=== PATIENT | female | born 1945 | race Caucasian/White ===

== ENCOUNTER 2017-11-12 05:34 | Day surgery (SDC) | payer OTHER ==
[2017-11-11 09:49] VITALS: BMI 28.1
[2017-11-12] MEDS ORDERED: BUPIVACAINE HCL/PF 0.5% (5MG/ML) 10 ML VIAL ONE (13:23)
[2017-11-12] MEDS ORDERED: BENZOIN/ALOE VERA/STORAX/TOLU 58 ML BOTTLE ONE (13:23)
[2017-11-12] MEDS ORDERED: ROCURONIUM BROMIDE 50 MG/5 ML VIAL ONE (13:28)
[2017-11-12] MEDS ORDERED: MIDAZOLAM HCL 2 MG/2 ML SINGLE DOSE VIAL ONE (13:28)
[2017-11-12] MEDS ORDERED: PROPOFOL 20 ML ONE (13:28)
--- NOTE | 2017-11-12 14:11 | HP ---
History & Physical Update - History History: No Change (from H&P 10/21/17) - Physical Physical: No Change (reducible umbilical/ventral hernia) - Assessment Assessment: No Change - Plan Plan: No Change (laparoscopic possible open ventral hernia repair with mesh)
[2017-11-12] MEDS ORDERED: ceFAZolin SODIUM 1 GM VIAL IVPB ONE (14:29)
[2017-11-12] MEDS ORDERED: DESFLURANE GAS 240 ML BOTTLE IH ONE (14:50)
[2017-11-12] MEDS ORDERED: KETOROLAC TROMETHAMINE 30 MG/1 ML VIAL ONE (15:32)
[2017-11-12] MEDS ORDERED: GLYCOPYRROLATE 0.2 MG/1 ML VIAL ONE (15:32)
[2017-11-12] MEDS ORDERED: NEOSTIGMINE METHYLSULFATE 0.5 MG/ML - 10 ML MDV ONE (15:32)
[2017-11-12] MEDS ORDERED: BUPIVACAINE HCL/PF 0.5% (5MG/ML) 10 ML VIAL IJ ONE (15:36)
[2017-11-12] MEDS ORDERED: METOPROLOL TARTRATE 5 MG/5 ML VIAL ONE (15:47)
[2017-11-12] MEDS ORDERED: ONDANSETRON 4 MG/2 ML VIAL IVPUSH PRN (15:55)
[2017-11-12] MEDS ORDERED: PROMETHAZINE HCL 25 MG/1 ML VIAL IVPUSH PRN (15:55)
[2017-11-12] MEDS ORDERED: LACTATED RINGERS SOLUTION 1,000 ML IV SCH (16:00)
--- NOTE | 2017-11-12 16:17 | OP ---
Operative Note - Note: Operative Date: 11/12/17 Pre-Operative Diagnosis: reducible ventral hernia Operation: laparoscopic ventral hernia repair with mesh Findings: 2cm defect, no content; closed percutaneously, 4x6" Bard elliptical Echo PS mesh used Implants: Bard 4x6" elliptical mesh with Echo PS Post-Operative Diagnosis: Same as Pre-op Surgeon: Donny Alonso Email Operations Manager: Bethel Mota Anesthesiologist/CASTING AGENT: Gamaliel Caldwell Anesthesia: General, Local (10ml 0.5% marcaine) Estimated Blood Loss (mls): 5 Fluid Volume Replaced (mls): 1,200 (crystalloid) Operative Report Dictated: Yes
[2017-11-12] MEDS ORDERED: oxyCODONE HCL 5 MG TABLET PO ONE (16:30)
[2017-11-12 16:53] VITALS: TEMP 98.2
[2017-11-12 18:49] VITALS: BP 144/65; PULSE 82
== END 2017-11-12 18:45 | disposition home or self-care (01) ==
LOC: JASU-SURG 05:34
PROVIDERS: ATTEND Surgery
PROC: 0WUF4JZ Supplement Abdominal Wall with Synthetic Substitute, Percutaneous Endoscopic Approach (ICD-10-PCS; principal; 2017-11-12 14:00)
DX: K43.9 Ventral hernia without obstruction or gangrene (principal)
CPT/HCPCS: 94760